=== PATIENT | male | born 1960 | race Caucasian/White ===

== ENCOUNTER 2020-08-14 09:11 | Outpatient (CLI) | payer OTHER, SELFPAY | END 2020-08-14 09:12 | LOC: ANHCOVIDVC 09:11 | PROVIDERS: PCP Internal Medicine Cardiovascular Disease | DX: Z23 Encounter for immunization (principal) | CPT/HCPCS: 0001A; 91300 ==

== ENCOUNTER 2020-09-04 09:10 | Outpatient (CLI) | payer OTHER, SELFPAY | END 2020-09-04 09:11 | disposition home or self-care (01) | LOC: ANHCOVIDVC 09:12 | PROVIDERS: PCP Internal Medicine Cardiovascular Disease | DX: Z23 Encounter for immunization (principal) | CPT/HCPCS: 0002A; 91300 ==

== ENCOUNTER 2020-12-28 00:56 | Day surgery (SDC) | payer OTHER, SELFPAY ==
[2020-12-28] VITALS (7 sets, daily range): BP systolic 109–144; BP diastolic 72–83; PULSE 63–75; RESP 15–19; TEMP 35.7–36.4; O2SAT 92–98; BMI 24.5
[2020-12-28 12:20] LABS: Basophils Percent Auto 0.4 % (0.2-1.2); Eosinophils Absolute Auto 0.5 K/mm3 (0-0.3); Eosinophils Percent Auto 5.4 % (0-4.4); Hematocrit 42.7 % (42.0-52.0); Hemoglobin 14.6 g/dL (14.0-18.0); Immature Granulocyte Absolute 0.01 K/mm3 (0.00-0.031); Immature Granulocyte Percent A 0.1 % (0-0.5); Lymphocytes Absolute Auto 2.21 K/mm3 (0.9-3.2); Lymphocytes Percent Auto 24.4 % (18.3-44.2); Mean Corpuscular HGB Conc 34.2 g/dl (32-36); Mean Corpuscular Hemoglobin 31.6 pg (26-34); Mean Corpuscular Volume 92.4 fl (80-100); Mean Platelet Volume 9.6 fl (7.4-10.4); Monocytes Absolute Auto 0.6 K/mm3 (0.1-0.6); Monocytes Percent Auto 6.5 % (2.6-8.5); Neutrophils Absolute Auto 5.7 K/mm3 (1.3-6.7); Neutrophils Percent Auto 63.2 % (45.5-73.1); Platelet Count Result 214 k/mm3 (150-375); Red Blood Count 4.62 M/mm3 (4.6-6.20); Red Cell Distribution Width 13.2 % (11.5-14.5); White Blood Count 9.1 K/mm3 (4.5-10.0)
[2020-12-28 12:32] LABS: Anion Gap 5 mmol/L (8-16); Blood Urea Nitrogen 17 mg/dL (9-20); Calcium 9.4 mg/dL (8.4-10.2); Carbon Dioxide 28 mmol/L (22-30); Chloride 106 mmol/L (98-107); Estimated Glomerular Filt Rate > 60; Glucose 91 mg/dL (65-110); Potassium 3.9 mmol/L (3.4-5.0); Sodium 139 mmol/L (137-145)
--- NOTE | 2020-12-28 12:58 | PM.IMHP ---
H&P: HPI History of Present Illness Date/Time: 12/28/20 12:58 Chief Complaint: pulse generator malfunction, needs emergent replacement Narrative: Brent Rivera is a 60-year-old male with idiopathic dilated cardiomyopathy diagnosed in 2010. EF was 14% at the time and a [employer] ICD was implanted. He is at done well the last few years with some improvement of LV function, EF now 39%, and no hospitalizations recently. Pt has been NPO and feels well with no infections or fevers. His [employer] ICD has been on Advisory Status as some of these devices malfunction can have rapid battery depletion. We received notification that this device had reached OLAYINKA. Once this particular device reaches OLAYINKA, it is considered an unreliable defibrillator and [facility] recommends emergent pulse generator replacement. Review of Systems Constitutional: Constitutional: Reports no additional constitutional complaints Eyes: Eyes: Reports no additional eye complaints ENT: Reports system reviewed and no additional complaints, except as documented Cardiovascular: Cardiovascular: Denies chest pain, Denies pedal edema, Denies leg edema, Denies lightheadedness and Denies palpitations Respiratory: Respiratory: Denies dyspnea and Denies dyspnea on exertion Gastrointestinal: Gastrointestinal: Denies abdominal pain Genitourinary: Genitourinary: Denies dysuria Musculoskeletal: Musculoskeletal: Reports no additional musculoskeletal complaints Integumentary/Breasts: Skin/Breast: Denies rash Neurologic: Reports system reviewed and no additional complaints, except as documented Psychiatric: Psychiatric: Reports no additional psychiatric complaints [facility] Past Medical History Medical History (Updated 12/28/20 @ 13:17 by Ninfa Leung MD) Cardiomyopathy, dilated Chronic systolic CHF (congestive heart failure) Finger fracture ICD (implantable cardioverter-defibrillator) in place [employer] ICD implanted October 2010 Mixed hyperlipidemia Tobacco use Wheezing Family History Family History (Updated 12/28/20 @ 13:15 by Ninfa Leung MD) Father Patient's father is in good health Heart disease CABG Mother Diabetes mellitus Social History Social History Smoking end date: 06/02/08 Meds Home Medications and Allergies Home Medications Medication Instructions Recorded Confirmed Type aspirin [Adult Low Dose Aspirin] 81 mg PO DAILY 12/28/20 12/28/20 History carvedilol 25 mg PO DAILY 12/28/20 12/28/20 History esomeprazole magnesium [Nexium 20 mg PO DAILY 12/28/20 12/28/20 History 24HR] lisinopril 10 mg PO DAILY 12/28/20 12/28/20 History mv,Ca,qgw-joka-TP-lycopene 1 tablet PO 12/28/20 History [Centrum Men] rosuvastatin 10 mg PO DAILY 12/28/20 12/28/20 History Allergies Allergy/AdvReac Type Severity Reaction Status Date / Time JOSIAH Inhibitors Allergy Unknown Verified 12/21/12 13:57 No Known Drug Allergies Allergy Unknown Verified 07/30/10 20:39 NKDA Allergy Mild Uncoded 07/30/10 15:42 Exam Const: General: comfortable and no acute distress HENMT: General nose exam: Epistaxis present Mouth: Yes moist mucous membranes Eyes: EOM: EOMs intact bilaterally Neck: Neck: supple Thyroid: thyroid normal Resp: Effort & Inspection: normal respiratory effort Auscultation: clear to auscultation bilaterally Cardio: Rate: regular rate Rhythm: regular rhythm Heart sounds: no murmurs GI: Inspection: non-distended GI Palp: Yes Soft to palpation and No Firmness to palpation present (GI) Skin: General skin exam: normal color and no rashes or lesions noted Other: ICD is migrated to the left breast area, overlying skin is well-healed and free of lesions Neuro: Cognition (Neuro): normal cognition Speech: normal speech Motor exam (neuro): Normal motor muscle tone present throughout Extrem: General: no edema and no pedal edema Psych: Mental Status: mental status grossly normal
--- NOTE | 2020-12-28 13:23 | WPDMODSED ---
Moderate Sedation Note-Pt Data Patient Data Diagnosis: Possible ICD malfunction requiring emergent generator change. ICD reach OLAYINKA Present Complaint: ICD reached OLAYINKA requiring emergency generator change Procedure to be performed/Plan: Conscious sedation Generator change ICD pocket revision Allergies Allergy/AdvReac Type Severity Reaction Status Date / Time JOSIAH Inhibitors Allergy Unknown Verified 12/21/12 13:57 No Known Drug Allergies Allergy Unknown Verified 07/30/10 20:39 NKDA Allergy Mild Uncoded 07/30/10 15:42 Home Medications Medication Instructions Recorded Confirmed Type aspirin [Adult Low Dose Aspirin] 81 mg PO DAILY 12/28/20 12/28/20 History carvedilol 25 mg PO DAILY 12/28/20 12/28/20 History esomeprazole magnesium [Nexium 20 mg PO DAILY 12/28/20 12/28/20 History 24HR] lisinopril 10 mg PO DAILY 12/28/20 12/28/20 History mv,Ca,fyr-rcny-HY-lycopene 1 tablet PO 12/28/20 History [Centrum Men] rosuvastatin 10 mg PO DAILY 12/28/20 12/28/20 History Sedation/Anesthesia: No previous sedation/anesthesia problems (including family history). [facility] Past Medical History Medical History (Updated 12/28/20 @ 13:17 by Ninfa Leung MD) Cardiomyopathy, dilated Chronic systolic CHF (congestive heart failure) Finger fracture ICD (implantable cardioverter-defibrillator) in place [employer] ICD implanted October 2010 Mixed hyperlipidemia Tobacco use Wheezing Family History Family History (Updated 12/28/20 @ 13:15 by Ninfa Leung MD) Father Patient's father is in good health Heart disease CABG Mother Diabetes mellitus Social History Social History Smoking end date: 06/02/08 Mod Sed Physical Exam Physical Exam Pre Procedural Exam: Normal: Appearance, Eyes, Ears, Nose, Neck, Throat, Airway, Lungs, Heart Size, Heart Rate, Heart Rhythm, Neuro Exam, Abdomen, Extremities and Skin ( ICD has migrated to the left breast area skin is healed.) Hours since solid foods: 12 Hours since liquid intake: 12 Mallampati Classification: class III Internal Medicine - PN: Obj Da Labs CBC & Chem 7: 12/28/20 12:12 12/28/20 12:12 Labs: Laboratory Results - last 24 hr 12/28/20 12/28/20 12:12 12:12 WBC 9.1 RBC 4.62 Hgb 14.6 Hct 42.7 MCV 92.4 MCH 31.6 MCHC 34.2 RDW 13.2 Plt Count 214 MPV 9.6 Immature Gran % (Auto) 0.1 Neut % (Auto) 63.2 Lymph % (Auto) 24.4 Morgan % (Auto) 6.5 Eos % (Auto) 5.4 H Baso % (Auto) 0.4 Lymph # (Auto) 2.21 Morgan # (Auto) 0.6 Eos # (Auto) 0.5 H Baso # (Auto) 0.0 Abs Immat Gran (auto) 0.01 Absolute Neuts (auto) 5.7 Absolute Nucleated RBC 0.0 Nucleated RBC % 0.0 Sodium 139 Potassium 3.9 Chloride 106 Carbon Dioxide 28 Anion Gap 5 L BUN 17 Creatinine 1.10 Estim Creat Clear Calc Not Reportable Estimated GFR > 60 Glucose 91 Calcium 9.4 ASA Classification/Sedation ASA Classification/Sedation ASA Class: III Emergent: No Risks: Risks, benefits and alternatives explained and patient/family accepted plan for sedation. Patient re-evaluated immediately prior to sedation.
--- NOTE | 2020-12-28 16:03 | PM.OP ---
Procedure Note - Brief Procedure Note - Brief Date of procedure: 12/28/20 Pre-op diagnosis: OLAYINKA Post-op diagnosis: same Procedure performed: Generator change Pocket revision Conscious sedation Description of procedure: uneventful generator change Anesthesia: local ( with conscious sedation) Surgeon: Ninfa Leung MD Estimated blood loss (mL): 5 Drains: No Packing: No Pathology: none sent Complications: No immediate complications Condition: stable Disposition: observation
--- NOTE | 2020-12-28 16:04 | W.PM.PROC2 ---
Procedure Note - Detailed Date of Procedure 12/28/20 Pre-op Diagnosis OLAYINKA, emergent generator change Post-op Diagnosis same Procedure Performed PROCEDURE: Conscious sedation Generator change Pocket revision Surgeon Ninfa Leung MD Indications HISTORY: 60-year-old male with his [employer] ICD implanted November 20, 2010. His device is on advisory as some devices have sudden battery depletion. He has reached OLAYINKA and is at risk of sudden battery depletion and his device is considered not reliable. [facility] recommends emergent generator change in this situation and the patient is here for emergent generator change. The device has migrated into the left breast area and a pocket revision is being performed as well. Findings UNDERLYING RHYTHM: normal sinus rhythm Description of Procedure CONSCIOUS SEDATION: Assessment: The patient has no history of anesthesia problems. The oropharynx is clear. The patient was deemed to be a good candidate for conscious sedation. The patient had continuous hemodynamic and oximetric monitoring during the procedure. Start time: 1503 Completion time: 1559 Total conscious sedation time: 53 minutes Medications: Versed 4 mg, fentanyl 150 mcg IV push Trained observer: Genoveva Mccrary RN Outcome: The patient tolerated the procedure well with no complications. PROCEDURE: After informed consent, the patient is brought to the blood bank laboratory technician and the left prepectoral area was prepped and draped in usual fashion. Fluoroscopy was used to evaluate the leads and the orientation of the device since it had migrated from the subclavian area to the left breast area. Fortunately the leads were long and had adequate redundancy so there was no tension on the leads. The patient was given a prophylactic antibiotic intravenously with Ancef. After conscious sedation as described above, the area was anesthetized with 1% lidocaine. A skin incision is made with the Plasma Blade and carried down to the pacing capsule which was also incised. Hemostasis is obtained using the Plasma Blade. The lead/s was/were freed from the underlying capsule and inspected and were found to be intact. The pulse generator was delivered from the pocket. The lead/s was/were disconnected from the existing device and reconnected to the new device. A gentle tug could not remove it/them. The device and lead/s was/were interrogated and found to be functioning appropriately. The leads were dissected cephalad and a pocket was formed superior to the existing pocket. The area was copiously irrigated with antibiotic-containing solution. The device was replaced in the pocket. A stay stitch was applied with2 0 silk suture. The subcutaneous tissues were closed in a two-layer fashion with interrupted 2 0 Vicryl sutures and the skin was closed in a continuous fashion using 4 0 Vicryl. The area was cleansed, an Aquacel dressing applied. The patient tolerated the procedure well with no complications. Estimated blood loss was negligible. THRESHOLD INFORMATION: Atrial lead: P wave sensing greater than 5 mV, impedance 440 Ohms, threshold 0.75 volts at 0.5 milliseconds Ventricular lead: R-wave sensing 12 mV, impedance 540 Ohms, threshold 1.125 volts at 0.5 milliseconds PROGRAMMED PARAMETERS: DDD 50 /100, V-tach zone off, VFib zone 187 beats per minute . Implants DEVICE INFORMATION: New Pulse generator: [employer] Yen[employer] DR 2357 -40Q serial [id number] Existing atrial lead: [employer] 1998, serial [id number] implanted 11/20/2010 Existing right ventricular lead: [employer] 7121 Q/ 65, serial [id number], implanted 11/20/2010 Explanted pulse generator: [employer] model CD 2 231-40 Q, serial [id number], implanted 11/20/2010
--- NOTE | 2020-12-28 18:19 | SUR.PHASEII ---
1800 D/c instructions reviewed with patient in depth, questions answered, pt verbalizes understanding. IV d/c'd, cath intact, pressure was applied, no bleeding noted. Ice pack and script for pain meds sent with patient, he was transported to [facility] via wheelchair where his son picked him up in a private vehicle.
== END 2020-12-28 18:15 | disposition home or self-care (01) ==
PROVIDERS: PCP Internal Medicine Cardiovascular Disease; Visit Provider Internal Medicine Cardiovascular Disease
PROC: 0JPT0PZ Removal of Cardiac Rhythm Related Device from Trunk Subcutaneous Tissue and Fascia, Open Approach (ICD-10-PCS; CPT 33249; principal; 2020-12-28 13:00)
DX: Z45.02 Encounter for adjustment and management of automatic implantable cardiac defibrillator (principal); I42.0 Dilated cardiomyopathy; E78.2 Mixed hyperlipidemia; I50.22 Chronic systolic (congestive) heart failure; Z79.82 Long term (current) use of aspirin
CPT/HCPCS: 33263; 36415; 80048; 85025; C1721; J0690; J2250; J3010; J7040

== ENCOUNTER 2021-08-27 10:34 | Outpatient (CLI) | payer BC, SELFPAY | END 2021-08-27 10:35 | disposition home or self-care (01) | PROVIDERS: PCP Internal Medicine Cardiovascular Disease; Visit Provider Internal Medicine Cardiovascular Disease | DX: I50.22 Chronic systolic (congestive) heart failure (principal); I42.8 Other cardiomyopathies | CPT/HCPCS: 99199; 36415 ==

== ENCOUNTER 2023-07-20 14:04 | Emergency (ER) | payer OTHER, SELFPAY ==
--- NOTE | ~2023-07-20 | XR_ITS ---
EXAMINATION: XR chest 2V Exam Date/Time: 07/20/2023 14:56 [employer] HISTORY: short of breath, wheezing Comparison: 07/05/2016. RESULT: Lines, tubes, and devices: Intact sternotomy wires. Mediastinal surgical clips. Lungs and pleura: Clear. Cardiomediastinal silhouette: Stable. Other: No acute osseous or upper abdominal finding. IMPRESSION: No acute cardiopulmonary process. Reviewed, dictated and finalized at location K. [employer]
[2023-07-20 14:21] VITALS: BP 135/83; PULSE 80; RESP 24; TEMP 36.7; O2SAT 95
--- NOTE | 2023-07-20 14:59 | ED.URI ---
HPI - URI/Sore Throat General Chief Complaint: Upper Respiratory Infection Stated Complaint: flu like symptoms Time Seen by Provider: 07/20/23 14:55 Source: patient and RN notes reviewed Mode of arrival: ambulatory Limitations: no limitations History of Present Illness HPI Narrative: Patient presents today with a 10-14 day history productive cough, rhinorrhea, postnasal drip, and shortness of breath. States that yesterday his sputum changed from clear to green and he wanted to come in for further evaluation. He has been taking Zyrtec and Mucinex with mild relief. He has also been using a rescue inhaler that helps for short periods of time. States he has, ?the beginnings of COPD. ? Related Data Home Medications Medication Instructions Recorded Confirmed aspirin 81 mg tablet 81 mg PO DAILY 12/28/20 12/28/20 carvedilol 25 mg tablet 25 mg PO DAILY 12/28/20 12/28/20 multivit,Ca,min-iron 8 mg-folic 1 tablet PO DAILY 12/28/20 12/28/20 acid 200 mcg-lycopene 600 mcg tablet (Centrum Men) rosuvastatin 10 mg tablet 10 mg PO DAILY 12/28/20 12/28/20 apixaban 5 mg tablet (Eliquis) mg 07/20/23 07/20/23 pantoprazole 40 mg tablet,delayed mg PO 07/20/23 release Allergies Allergy/AdvReac Type Severity Reaction Status Date / Time JOSIAH Inhibitors Allergy Unknown Unknown Verified 07/20/23 14:39 Review of Systems Review of Systems: CONSTITUTIONAL: Denies body aches, fever, chills, or sweats. EYES: Denies visual changes, redness, or discharge. ENT: Denies congestion, sore throat, or otalgia.+ rhinorrhea, postnasal drip CARDIOVASCULAR: Denies chest pain, palpitations, or edema. RESPIRATORY: + cough, shortness of breath GASTROINTESTINAL: Denies abdominal pain, nausea, vomiting, or diarrhea. GENITOURINARY: Denies dysuria or hematuria. SKIN: Denies rash, itching, or wounds. MUSCULOSKELETAL: Denies back pain, joint pain, or myalgia. NEUROLOGIC: Denies headache, numbness, tingling, or weakness. PSYCH: Denies depression or anxiety. [facility]LY [facility] Past Medical History Medical History Cardiomyopathy, dilated Chronic systolic CHF (congestive heart failure) Finger fracture ICD (implantable cardioverter-defibrillator) in place [facility] ICD implanted October 2010 Mixed hyperlipidemia Tobacco use Wheezing Family History Family History Father Patient's father is in good health Heart disease CABG Mother Diabetes mellitus Social History Social History Smoking end date: 06/02/08 Comments At time of signature, I have reviewed and agree with nursing past medical, surgical, social and family history unless otherwise noted. Please see nursing chart for further information. There is no relevant family history pertinent to the presenting complaint Exam Narrative: GENERAL: Mildly ill appearing, well-nourished, and in no acute distress. HEAD: Normocephalic, atraumatic. EYES: EOMI. No redness or drainage. Conjunctivae normal. ENT: Mucous membranes pink and moist. Nares clear. No rhinorrhea. TMs normal bilaterally. Throat normal. Uvula midline. NECK: Normal AROM. Supple. No lymphadenopathy. CHEST: No respiratory distress. Expiratory wheezing throughout. Crackles in the right lower lobe. HEART: Regular rate and rhythm. No murmur appreciated. EXTREMITIES: Normal range of motion. No edema. SKIN: Warm, dry, no rash. Capillary refill normal. Normal skin turgor. NEURO: No focal deficits. Alert and oriented x3. Gait steady. PSYCH: Normal affect. No signs of depression or anxiety. Course Course Level of Care: Express Care Visit Vital Signs Vital signs: Vital Signs Temperature 98.0 F 07/20/23 14:21 Pulse Rate 80 07/20/23 14:21 Respiratory Rate 24 H 07/20/23 14:21 Blood Pressure 135/83 07/20/23 14:21 Puls
[2023-07-20] MEDS: IPRATROPIUM BR 0.02% INH SOLN 0.5 MG/2.5 ML VIAL INHALATION (15:09)
[2023-07-20] MEDS: ALBUTEROL SULFATE NEB 2.5 MG/3 ML INH INHALATION (15:10)
== END 2023-07-20 15:39 | disposition home or self-care (01) ==
PROVIDERS: Emergency Provider Nurse Practitioner
DX: J22 Unspecified acute lower respiratory infection (principal); I50.22 Chronic systolic (congestive) heart failure; E78.2 Mixed hyperlipidemia; Z79.01 Long term (current) use of anticoagulants
CPT/HCPCS: 71046; 94640; 99213; G0463

== ENCOUNTER 2024-09-01 18:09 | Emergency (ER) | payer OTHER, SELFPAY ==
--- OUTSIDE RECORDS SUMMARY | 2024-09-01 18:11 | XMS_ITS | Clinical Summary ---
Author Organization [facility] Address [address] [place] [address] Care Team Providers Care Territory Outside Sales Manager Name Role Phone Hiram Sparrow MD Primary Care Provider Source Comments [facility],non-owned Affiliates and Associated Physician Practices is amultiple site organization consisting of ambulatory clinics and hospital sitesin [place], [place], [place] and [place]. This disclosure is being madepursuant to the Care Everywhere program and may not contain all information available regarding this patient. Last updated 18.[facility] Allergies Active Allergy Reactions Criticality Noted Date Comments Spironolactone Unknown Medium 02/14/2017 Breast tenderness Medications * Be aware that medications may not be up to date on this document. Alwaysverify current medications with the patient. Medication Sig Dispensed Refills Start Date End Date Status rosuvastatin (CRESTOR) 10 MG tablet TAKE 1 TABLET NIGHTLY 90 tablet 01/22/2018 Active aspirin (ASPIRIN) 81 MG tablet Take 1 (one) tablet by mouth once daily Active albuterol HFA (PROVENTIL;VENTOLIN ;PROAIR) 108 (90 Base) MCG/ACT inhaler inhale 2 puff by inhalation route every 4 - 6 hours as needed 08/03/2014 Active apixaban (Eliquis) 5 MG tablet Take 1 (one) tablet by mouth 2 times daily Active carvedilol (Coreg) 12.5 MG tablet Take 1 (one) tablet by mouth 2 times daily 60 tablet 11 04/08/2023 Active pantoprazole EC (Protonix) 40 MG tablet Take 1 (one) tablet by mouth once daily 30 tablet 11 04/21/2023 Active Active Problems Problem Noted Date Diagnosed Date Hyperlipidemia 08/30/2015 Chronic obstructive pulmonary disease 08/30/2015 Nicotine dependence, uncomplicated 08/30/2015 Chronic systolic congestive heart failure 2014 Acute gastric ulcer without hemorrhage or perfor ation 03/21/2015 Overview (09/01/2017): Occurred in 2010, started on PPI, no symptoms since then Presence of automatic implan table cardioverter-defibrillator 03/21/2015 Overview (09/01/2017): Placed in 2010 Personal history of other malignant neoplasm of skin 03/08/2015 Basal cell carcinoma of skin of scalp and neck 0 01/06/2015 Other melanin hyperpigmentation 12/30/2014 Melanocytic nevus 12/30/2014 Other seborrheic keratosis 12/30/2014 Immunizations Name Administration Dates Next Due INFLUENZA VACCINE, TRIV. (AF LURIA, FLUZONE TRIVALENT; 6MO+) (IIV3) 06/11/2016 INFLUENZA VACCINE 02/22/2023,03/21/2015 INFLUENZA VACCINE, CELL CULT URE, QUADR. (FLUCELVAX QUADRIVALENT; 6MO+) (CCIIV4) 02/22/2023,03/01/2022,03/08/2021 INFLUENZA VACCINE, QUADR. (F LUZONE; FLULAVAL; FLUARIX; AFLURIA QUADRIVALENT; 6MO+), 0.5 ML (IIV4) 03/14/2020,04/23/2019,04/01/2018 INFLUENZA VACCINE, TRIV. (FL UZONE; FLULAVAL; FLUARIX; AFLURIA TRIVALENT; 6MO+), 0.5 ML (IIV3) 06/10/2016 Family History Medical History Relation Name Comments Heart Disease Brother Heart Disease Father Diabetes Mother Cancer - Skin, Melanoma Neg Hx Cancer - Skin, Non Melanoma Neg Hx Relation Name Status Comments Brother Father Mother Social History Tobacco Use Types Packs/Day Years Used Date Smoking Tobacco: Every Day Cigarettes Smokeless Tobacco: Never Tobacco Cessation:Ready to Q uit: No; Counseling Given: No Alcohol Use Standard Drinks/Week Comments Not Currently 0 (1 standard drink = 0.6 oz pur e alcohol) PHQ-2 Answer Date Recorded Patient Health Questionnaire-2 Score 0 05/14/2023 Sex and Gender Information Value Date Recorded Sex Assigned at Not on file Gender Identity Not on file Sexual Orientation Not on file Last Filed Vital Signs Vital Sign Reading Time Taken Comments Blood Pressure 135/89 05/16/2023 1:21 PM JOB COACH Pulse 85 05/16/2023 1:21 PM JOB COACH Temperature 36.5 C (97.7 F) 05/16/2023 1:21 PM JOB COACH Respiratory Rate 16 03/28/2023 9:45 AM CDT Oxygen Saturation 96% 05/16/2023 1:21 PM JOB COACH Inhaled Oxygen Concentration - - Weight 73.4 kg (161 lb 12.8 oz) 05/16/2023 1:21 PM JOB COACH Height 177.8 cm (5' 10 ) 05/16/2023 1:21 PM JOB COACH Body Mass Index 23.22 05/16/2023 1:21 PM JOB COACH Plan of Treatment Health Maintenance Due Date Last Done Comments COLOGUARD (AGES 45-75) - COLON CA SCREENING 1961 COLON MONITORING 1961 COLONOSCOPY - COLON CA SCREENING 1961 CT COLONOGRAPHY - COLON CA SCREENING 1961 Colorectal Cancer Screening 1961 FIT - COLON CA SCREENING 1961 FLEX SIG - COLON CA SCREENING 1961 HIV SCREENING 1976 HEPATITIS C SCREENING 07/04/1979 DTAP/TDAP/TD VACCINES (1 - Tdap) 1980 PNEUMOCOCCAL VACCINE 50+ (1 of 2 - PCV) 1980 PNEUMOCOCCAL VACCINE (1 of 2 - PCV) 1980 ZOSTER VACCINE (1 of 2) 2011 Respiratory Syncytial Virus (RSV) Vaccine Pt: or over 60 yrs (1 - Risk 60-74 years 1-dose series) 2021 COVID-19 VACCINE ( season) 2024 02/22/2023, 03/01/2022, 10/02/2021, Additional history exists INFLUENZA VACCINE (#1) 2024 , 02/22/2023, 03/01/2022, Additional history exists DEPRESSION SCREENING 06/02/2024 05/16/2023 HEPATITIS B VACCINE Aged Out No longe r eligible based on patient's age to complete this topic HIB VACCINE Aged Out No longer eligi ble based on patient's age to complete this topic HPV VACCINE Aged Out No longer eligi ble based on patient's age to complete this topic MENINGOCOCCAL (Group B) VACCINE SHARED DECISION-MAKING Aged Out No longer eligible based on patient's age to complete this topic MENINGOCOCCAL GROUPS A/C/Y/W VACCINE Aged Out No longer eligible based on patient's age to complete this topic Medical Devices Implanted Type Area Guest Services Assistant Device Identifier Shelf Expiration Date Model / Serial / Lot Mesh Srg 3dmax 7x5in Xl 3d Crv Contr Sl Implanted:Qty: 1 on 06/25/2019 by Raimundo Morales MD at [facility] [employer] 01/28/2024 [id number] / / [id number] Care Teams Territory Outside Sales Manager Relationship Specialty Start Date End Date Hiram Sparrow MD [address] DIV OF GEN [place] [address] PCP - General Internal Medicine 05/16/23
--- OUTSIDE RECORDS SUMMARY | 2024-09-01 18:11 | XMS_ITS | Referral Summary ---
Author Organization [facility] Address [address] [place] [address] Care Team Providers Care Rock Room Worker Name Role Phone Jaimie Isidro MD Unavailable Miscellaneous, Not In File Unavailable Unava ilable Hiram Cross MD Primary Care Provider [phone] Encounters Date Type Department Care Team Description 07/15/2024 Telephone [facility] Cardiology [address] [place] [address] Luz Elena Kirkpatrick MD Med Refill from Last 3 Months Allergies Active Allergy Reactions Criticality Noted Date Comments Spironolactone Other (See comments) Medium 02/14/2017 Breast tenderness Medications albuterol HFA (PROVENTIL HFA,VENTOLIN HFA,PROAIR HFA) 90 mcg/actuation inhalerIndication s:Other emphysema (HCC) Inhale 2 puffs 3 (three) times a day as needed for wheezing (wheezing and shortness of breath) 1 each 3 08/28/19 22 Active aspirin 81 mg enteric coated tablet Take 1 tablet (81 mg total) by mouth nightly Active multivit hctfffmp-dbkw-XZ- calcium (THERA-M) 9 mg iron-400 mcg tabletIndications :Vitamin Deficiency Prevention Take 1 tablet by mouth nightly Active acetaminophen 500 mg capsuleIndication s:Fever,Pain Take 2 capsules (1,000 mg total) by mouth every 6 (six) hours as needed for pain 03/26/20 23 Active apixaban (ELIQUIS) 5 mg tabletIndications :Venous Thrombosis,atrial fibrillation Take 1 tablet (5 mg total) by mouth every 12 (twelve) hours 180 tablet 3 04/08/20 23 Active multivitamin-mine rals-lutein tablet Take by mouth Active carvediloL (COREG) 25 mg tabletIndications :Primary cardiomyopathy (HCC) Take 1 tablet (25 mg total) by mouth 2 (two) times a day with meals 180 tablet 3 03/05/20 24 025 Active rosuvastatin (CRESTOR) 10 mg tablet Take 1 tablet (10 mg total) by mouth nightly 90 tablet 07/15/[address] (PROTONIX) 40 mg EC tablet TAKE 1 TABLET(40 MG) BY MOUTH DAILY 90 tablet 1 08/27/[address] (PROTONIX) 40 mg EC tabletIndications :Treatment of Non-Bleeding Gastric Disorder Take 1 tablet (40 mg total) by mouth daily 90 tablet 1 05/27/20 24 025 Discontinued Active Problems Problem Noted Date Diagnosed Date Chronic deep vein thrombosis (DVT) of axillary vein of left upper extremity 06/11/2023 Chronic anticoagulation 06/11/2023 Return to work evaluation 06/11/2023 ICD (implantable cardioverte r-defibrillator) infection, sequela 03/15/2023 Assessment & Plan (03/25/2023 2:28 PM CDT): 03/17 removal of ICD with emergent sternotomy and pericardial patch repair pod 6 No chest tubes Arzate removed On RA Dr Isidro does not want TTE or COURTNEY, ID notified. ofnote I spoke with fellow in the case and looked at COURTNEY report intra op there was no signs of vegetations on intra op COURTNEY. No concern for valve involvement. Continue lasix po daily ID recommendations if primary team do not feel that echocardiogram is necessary, then we will tentatively plan to treat as isolated CIED pocket infection without BSI or IE - once vanco random <20, start doxycycline 100 mg PO BID (started on 03/20 - END date 04/03) - will recommend completing a total 2 week course of oral antibiotic therapy -Wound vac placed by wound team this AM, will arrange discharge home with wound vac for continued wound healing - discharge planning to home once wound vac insurance auth/supplies delivered Former smoker 04/12/2020 COPD (chronic obstructive pulmonary disease) 04/2020 Mixed hyperlipidemia 04/15/2017 Primary cardiomyopathy 12/21/2012 Overview (09/04/2016): PRIM CARDIOMYOPATHY NEC Automatic implantable cardioverter-defibrillator in situ 12/21/2012 Overview (01/15/2021): [employer] Dual ICD. Dx; NICM. DOI 12/28/2020-Uppstrom, chronic leads 11/20/2010. Armen remote monitoring. Chronic systolic heart failure 12/21/2012 Overview (09/07/2016): CHR SYSTOLIC HRT FAILURE Assessment & Plan (03/25/2023 2:22 PM CDT): Continue Coreg and Crestor Continue Lasix daily Monitor I&O Monitor daily weights Now on RA Resolved Problems Problem Noted Date Diagnosed Date Resolved Date Acute pain 03/20/2023 06/11/2023 Assessment & Plan (03/24/2023 1:19 PM CDT): Well controlled on current meds Continue marino Tylenol Continue PRN oxy Continue PRN flexeril Collapsed lung 03/20/2023 06/11/2023 Assessment & Plan (03/25/2023 2:22 PM CDT): Ezpap ordered Continue aggressive pulm toilet Remains on room air Patient needs to cough and deep breath Changed duonebs to prn 03/23 CXR showed small bilateral effusions Left arm swelling 03/20/2023 06/11/2023 Assessment & Plan (03/25/2023 2:23 PM CDT): Duplex ordered for left arm swelling - + acute DVT in IJ, Subcl and brachial on the left, RUE OK Per Dr Isidro start anticoagulation, continue on Apixaban Infected pacemaker, initial encounter 03/12/2023 06/11/2023 Hypotension due to drugs 09/02/202103/2024 Visit for wound check 01/04/20212023 Weight loss 04/21/2019 06/11/2023 Tobacco use 04/15/2017 04/12/2020 Immunizations Immunization Administration Dates Next Due Influenza, Unspecified 02/22/2023 Social History Tobacco Use Types Packs/Day Years Used Date Smoking Tobacco: Former Cigarettes Passive Smoke Exposure: Past Smokeless Tobacco: Never Comments:Smoking History Pac ks/day: 0.5 Packs Alcohol Use Standard Drinks/Week Comments Yes 0 (1 standard drink = 0.6 oz pur e alcohol) OASIS D0700: Social Isolation Answer Da te Recorded Frequency of experiencing loneliness or isolatio n Never 04/22/2023 OASIS A1250: Transportation Answer Date Recorded Lack of Transportation (Medical) No 04/22/2023 Lack of Transportation (Non-Medical) No 04/22/2023 Patient Unable or Declines to Respond No 04/22/2023 OASIS B1300: Health Literacy Answer Mariusz e Recorded Frequency of needing help to read materials from doctor or pharmacy Never 04/22/2023 AUDIT-C Answer Date Recorded Q1: How often do you have a drink containing alcohol? Never 03/17/2023 Q2: How many drinks containi ng alcohol do you have on a typical day when you are drinking? Patient does not drink Q3: How often do you have si x or more drinks on one occasion? Never 03/17/2023 Overall Financial Resource Strain (CARDIA) Answe r Date Recorded How hard is it for you to pa y for the very basics like food, housing, medical care, and heating? Not very hard 03/13/2023 PRAPARE - Transportation Answer Date Re corded In the past 12 months, has l ack of transportation kept you from medical appointments or from getting medications? No 03/02 In the past 12 months, has l ack of transportation kept you from meetings, work, or from getting things needed for daily living? No 03/13/2023 Personal Safety Answer Date Recorded Have you ever been in or are you currently in a harmful physical or emotional relationship or is someone making you feel afraid or unsafe? Denies 03/15/2023 Sex and Gender Information Value Date Recorded Sex Assigned at Not on file Legal Sex Male 1:44 AM DREDGE PUMPER Gender Identity Not on file Sexual Orientation Not on file Last Filed Vital Signs Vital Sign Reading Time Taken Comments Blood Pressure 102/70 06/11/2023 3:47 PM DREDGE PUMPER Pulse 81 06/11/2023 3:47 PM DREDGE PUMPER Temperature 36.3 C (97.4 F) 04/22/2023 8:51 AM DREDGE PUMPER Respiratory Rate 18 04/22/2023 8:51 AM DREDGE PUMPER Oxygen Saturation 93% 06/11/2023 3:47 PM DREDGE PUMPER Inhaled Oxygen Concentration - - Weight 73 kg (161 lb) 06/11/2023 3:47 PM DREDGE PUMPER Height 177.8 cm (5' 10 ) 06/11/2023 3:47 PM DREDGE PUMPER Body Mass Index 23.1 06/11/2023 3:47 PM DREDGE PUMPER Plan of Treatment Not on file Medical Devices Implanted Type Area Ocean Biologist Device Identifier Shelf Expiration Date Model / Serial / Lot [employer] Julisa Poornima-Guard [employer] Processing 14x8cm Multidirectional Fiber Patch [id number] - [id number] Implanted:Qty: 1 on 03/17/2023 by Jaimie Isidro MD at [facility] Left: Heart [facility] [facility] Julisa [id number] 10/16/2023 [id number] / / [id number]- [id number] Insurance [facility] Advance Directives For more information, please contact: [phone] * Full Code (Latest Code Status on File) Date Activated Date Inactivated Comments 03/17/2023 8:50 PM 03/26/2023 5:57 PM * Full Code Date Activated Date Inactivated Comments 03/15/2023 5:29 AM 03/17/2023 8:50 PM * Full Code Date Activated Date Inactivated Comments 03/15/2023 2:24 AM 03/15/2023 5:29 AM * Full Code Date Activated Date Inactivated Comments 03/12/2023 11:12 PM 03/15/2023 2:19 AM Care Teams Rock Room Worker Relationship Specialty Start Date End Date Hiram Cross MD [address] [place] [address] PCP - General Internal Medicine 06/11/23 Jaimie Isidro MD [address] [facility] [address] [place] [address] Surgeon Cardiothoracic Surgery 03/26/23 Miscellaneous, Not In File 03/26/23
--- OUTSIDE RECORDS SUMMARY | 2024-09-01 18:11 | XMS_ITS | Encounter Summary ---
Author Organization [facility] Address [address] [facility] [address] [place] [address] Care Team Providers Care Securities Analyst Name Role Phone Mark Bro MD Primary Care Provider + [phone] No, Physician Primary Care Provider [phone] Mark Bro MD Primary Care Provider + [phone] Jaimie Isidro MD Unavailable Miscellaneous, Not In File Unavailable Unava ilable Hiram Cross MD Primary Care Provider [phone] Encounter Details Date Type Department Care Team (Late st Contact Info) Description 06/12/2016 Orders Only [facility] ProviderMelissa MD [address] [place] [address] Social History Tobacco Use Types Packs/Day Years Used Date Smoking Tobacco: Heavy Smoker Cigarettes Last attempted t o quit: 06/02/2009 Comments:Smoking History Pac ks/day: 0.5 Packs Alcohol Use Standard Drinks/Week Comments Yes 0 (1 standard drink = 0.6 oz pur e alcohol) Sex and Gender Information Value Date Recorded Sex Assigned at Not on file Legal Sex Male 1:44 AM ARCHITECTURE INTERNSHIP Gender Identity Not on file Sexual Orientation Not on file documented as of this encounter Plan of Treatment Not on file documented as of this encounter Procedures Procedure Name Priority Date/Time Associated Diagnosis Comments CARDIOLOGY REPORT 06/12/2016 documented in this encounter Results * CARDIOLOGY REPORT (06/12/2016) Anatomical Region Laterality Modality Other Narrative 06/12/2016 Ordered by an unspecified provider. us Historical Provider [facility] Final Result documented in this encounter Visit Diagnoses Not on filedocumented in this encounter Care Teams Securities Analyst Relationship Specialty Start Date End Date Mark Bro MD [address] [place] [address] PCP - General 11/13/10 04/20/19 No, Physician PCP - General 04/21/19 05/12/19 Mark Bro MD [address] [place] [address] PCP - General Internal Medicine 05/13/19 06/10/23 Hiram Cross MD [address] [place] [address] PCP - General Internal Medicine 06/11/23 Jaimie Isidro MD [address] [facility] [address] [place] [address] Surgeon Cardiothoracic Surgery 03/26/23 Miscellaneous, Not In File 03/26/23 documented as of this encounter
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
--- OUTSIDE RECORDS SUMMARY | 2024-09-01 18:11 | XMS_ITS | Encounter Summary ---
Author Organization [facility] Address [address] [facility] [address] [place] [address] Care Team Providers Care Central Sterile Technician Name Role Phone Mark Bro MD Primary Care Provider + [phone] No, Physician Primary Care Provider [phone] Mark Bro MD Primary Care Provider + [phone] Jaimie Isidro MD Unavailable Miscellaneous, Not In File Unavailable Unava ilable Hiram Cross MD Primary Care Provider [phone] Encounter Details Date Type Department Care Team (Late st Contact Info) Description 09/18/2016 Orders Only [facility] ProviderMelissa MD [address] [place] [address] Social History Tobacco Use Types Packs/Day Years Used Date Smoking Tobacco: Heavy Smoker Cigarettes Last attempted t o quit: 06/02/2009 Comments:Smoking History Pac ks/day: 0.5 Packs Alcohol Use Standard Drinks/Week Comments Yes 0 (1 standard drink = 0.6 oz pur e alcohol) Sex and Gender Information Value Date Recorded Sex Assigned at Not on file Legal Sex Male 1:44 AM ASSISTANT MEN'S SOCCER COACH Gender Identity Not on file Sexual Orientation Not on file documented as of this encounter Plan of Treatment Not on file documented as of this encounter Procedures Procedure Name Priority Date/Time Associated Diagnosis Comments CARDIOLOGY REPORT 09/18/2016 documented in this encounter Results * CARDIOLOGY REPORT (09/18/2016) Anatomical Region Laterality Modality Other Narrative 09/18/2016 Ordered by an unspecified provider. us Historical Provider [facility] Final Result documented in this encounter Visit Diagnoses Not on filedocumented in this encounter Care Teams Central Sterile Technician Relationship Specialty Start Date End Date Mark Bro MD [address] [place] [address] PCP - General 11/13/10 04/20/19 No, Physician PCP - General 04/21/19 05/12/19 Mark Bro MD [address] [place] [address] PCP - General Internal Medicine 05/13/19 06/10/23 Hiram Cross MD [address] [place] [address] PCP - General Internal Medicine 06/11/23 Jaimie Isidro MD [address] [facility] [address] [place] [address] Surgeon Cardiothoracic Surgery 03/26/23 Miscellaneous, Not In File 03/26/23 documented as of this encounter
[2024-09-01 18:27] VITALS: BP 123/81; PULSE 101; RESP 24; TEMP 36.7; O2SAT 95
--- NOTE | 2024-09-01 18:29 | ED_ITS ---
HPI - URI/Sore Throat General Chief Complaint: Upper Respiratory Infection Stated Complaint: congestion Time Seen by Provider: 09/01/24 18:29 Source: patient Mode of arrival: ambulatory Limitations: no limitations History of Present Illness HPI Narrative: 64-year-old male presents with complaint of cough, chest congestion, sinus pressure and congestion for the past week. Reports shortness of breath increase coughing today. Has albuterol inhaler but not helping. Has been told in the past he may have COPD .afebrile. Audible wheezing noted. All systems reviewed and negative except as noted above. Related Data Home Medications ?Medication ?Instructions ?Recorded ?Confirmed ?Last Taken ?Type aspirin 81 mg tablet 81 mg PO DAILY 12/28/20 12/28/20 12/27/20 History 2200 carvedilol 25 mg tablet 25 mg PO DAILY 12/28/20 12/28/20 12/27/20 22:00 History multivit,Ca,min-iron 8 mg-folic 1 tablet PO DAILY 12/28/20 12/28/20 12/27/20 22:00 History acid 200 mcg-lycopene 600 mcg tablet (Centrum Men) rosuvastatin 10 mg tablet 10 mg PO DAILY 12/28/20 12/28/20 12/27/20 22:00 History pantoprazole 40 mg tablet,delayed mg PO 07/20/23 Unknown History release Allergies Allergy/AdvReac Type Severity Reaction Status Date / Time JOSIAH Inhibitors Allergy Unknown Unknown Verified 07/20/23 14:39 Review of Systems Review of Systems: CONSTITUTIONAL: Denies fever, chills, or sweats. EYES: Denies visual changes, redness, or discharge. ENT: Denies rhinorrhea, congestion, sore throat, or otalgia. CARDIOVASCULAR: Denies chest pain, palpitations, or edema. RESPIRATORY: Reports cough, chest congestion, wheezing, dyspnea. GASTROINTESTINAL: Denies abdominal pain, nausea, vomiting, or diarrhea. GENITOURINARY: Denies dysuria or hematuria. SKIN: Denies rash or itching. MUSCULOSKELETAL: Denies back pain, joint pain, or myalgia. NEUROLOGIC: Denies headache, numbness, or weakness. PSYCHIATRIC: Denies anxiety or depression. All other systems reviewed are negative, except as documented in HPI. [facility]LY [facility] Past Medical History Medical History Cardiomyopathy, dilated Chronic systolic CHF (congestive heart failure) Finger fracture ICD (implantable cardioverter-defibrillator) [facility] October 2010 Mixed hyperlipidemia Tobacco use Wheezing Family History Family History Father Patient's father is in good health Heart disease CABG Mother Diabetes mellitus Social History Social History Smoking end date: 06/02/08 Comments At time of signature, agree with nursing past medical, surgical, social and family history. There is no relevant family history pertinent to the presenting complaint. Exam Narrative: GENERAL: This is a well-nourished, well-developed patient, ill-appearing but in no acute distress HEAD: normocephalic, atraumatic. EYES: PERRL. Sclera clear/white. Vision is grossly intact. EARS: External ears normal, auditory canals clear and without drainage, TMs normal without perforation. Hearing grossly intact. NOSE: External nose normal with congestion, purulent nasal drainage THROAT: Mucous membranes moist, Erythema postnasal drainage NECK: Neck supple, non-tender without lymphadenopathy, masses or thyromegaly. CARDIOVASCULAR: Regular rate and rhythm without murmurs, gallops, or rubs. RESPIRATORY: labored breathing, expiratory wheezing throughout all lung renteria. Breath sounds equal bilaterally. No rales, or rhonchi. SKIN: warm, Dry, intact with no suspicious lesions or rash, good texture and turgor. NEURO: awake, alert, and oriented to person, place and time. There were no obvious focal neurologic abnormalities. EXTREMITIES: No joint tenderness, effusion, or edema noted. Course Course Level of Care: Express Care Visit Reevaluation(s) Reevaluation #1: Audible wheezing resolved. Oxygen saturation 94-95% room air after DuoNeb. Continues to have mild expiratory wheezing throughout all lung renteria. Vital Signs Vital signs: Vital Signs Temperature 36.7 C 09/01/24 18:27 Pulse Rate 101 H 09/01/24 18:27 Respiratory Rate 24 H 09/01/24 18:27 Blood Pressure 123/81 09/01/24 18: Pulse Oximetry 95 09/01/24 18:27 Oxygen Delivery Room Air 09/01/24 18:27 Temperature 36.7 C 09/01/24 18:27 Pulse Rate 89 09/01/24 18:56 Respiratory Rate 25 H 09/01/24 18:56 Blood Pressure 123/81 09/01/24 18:27 Pulse Oximetry 94 09/01/24 19:05 Oxygen Delivery Room Air 09/01/24 19:05 reviewed MDM - URI/Sore Throat MDM Narrative Medical decision making narrative: Recommend follow-up with primary care physician in 1 week. No respiratory distress. Patient speaking in full sentences. Recommend he go to the ER for any respiratory distress. Please be advised this is a medical document. It is intended for [id number] communication. It is written in medical language and may contain unfamiliar abbreviations or verbiage. Medical documents are intended to carry relevant information, facts as evident, and the clinical opinion of the practitioner at the time of the encounter. This report may have been done utilizing a voice recognition system. Attempts have been made to correct errors. However, there may be uncorrected grammatical, spelling, and recognition errors present. The file time of this note does not necessarily represent the time of service. Discharge Plan Discharge Clinical Impression: Acute bacterial sinusitis Acute bronchitis Qualifiers: Bronchitis organism: unspecified organism Qualified Code(s): J20.9 - Acute bronchitis, unspecified Patient Disposition: Home, Self-Care Condition: Stable Instructions: Acute Bronchitis (ED) Additional Instructions: continue to use albuterol inhaler as prescribed. Start prednisone prescription tomorrow morning. Purchase [id number] Mucinex and take as directed on packaging. Drink at least 64 oz of water a day. Follow-up with your primary care physician in 1 week. For any worsening of symptoms go to the ER. Patient Language: Moroccan Prescriptions: New doxycycline hyclate 100 mg capsule 100 mg PO BID 7 Days Qty: 14 0RF benzonatate 200 mg capsule 200 mg PO TID PRN (Reason: cough) Qty: 20 0RF prednisone 20 mg tablet 40 mg PO DAILY 5 Days Qty: 10 0RF albuterol sulfate 90 mcg/actuation HFA aerosol inhaler 2 puff inhalation Q4-6H PRN (Reason: shortness of breath or wheezing) Qty: 8.5 0RF (DME) Aerochamber Plus Z Stat Spacer See Rx Instructions .Route Qty: 1 0RF Rx Instructions: As directed No Action pantoprazole 40 mg tablet,delayed release (DR/EC) PO carvedilol 25 mg tablet 25 mg PO DAILY aspirin 81 mg Tablet 81 mg PO DAILY rosuvastatin 10 mg tablet 10 mg PO DAILY Centrum Men 8 mg iron- 200 mcg-600 mcg Tablet 1 tablet PO DAILY Follow-up/Referrals: UNKNOWN,DOCTOR [Primary Care Provider] - Stand Alone Forms: Work/School Release IP Time of Disposition: 19:06
[2024-09-01] MEDS: predniSONE 20 MG TABLET 40 MG PO (18:34)
[2024-09-01] MEDS: IPRATROPIUM 0.5 MG/ALBUTEROL SULFATE 2.5 MG AMPUL.NEB 3 ML INHALATION (18:34)
[2024-09-01 18:36] VITALS: PULSE 90; RESP 26; O2SAT 92
[2024-09-01 18:56] VITALS: PULSE 89; RESP 25; O2SAT 93
[2024-09-01 19:05] VITALS: O2SAT 94
== END 2024-09-01 19:13 | disposition home or self-care (01) ==
PROVIDERS: Emergency Provider Nurse Practitioner Family
DX: J01.90 Acute sinusitis, unspecified (principal); J20.9 Acute bronchitis, unspecified; Z87.891 Personal history of nicotine dependence; I42.9 Cardiomyopathy, unspecified; I50.22 Chronic systolic (congestive) heart failure; Z95.810 Presence of automatic (implantable) cardiac defibrillator; E78.2 Mixed hyperlipidemia; Z79.82 Long term (current) use of aspirin
CPT/HCPCS: 94640; 99213; G0463; J7512